=== PATIENT | male | born 1985 | race Asian ===

== ENCOUNTER 2020-05-27 21:05 | Emergency (ER) | payer BC ==
[~2020-05-27] VITALS: Ht 172.7 cm; Wt 79.5 kg
[2020-05-27] MEDS ORDERED: dexamethasone sod phosphate 10mg/ml inj IV STA (21:19)
[2020-05-27] MEDS ORDERED: clindamycin phosphate inj 600 MG in normal saline 50ml IV soln 50 ML IV ONE (21:20)
[2020-05-27] MEDS ORDERED: normal saline 1000ML IV soln IVB ONE (21:20)
[2020-05-27] MEDS ORDERED: LIDOcaine 1% W/epiNEPHrine 1:200,000 10ml vial IJ ONE (21:20)
[2020-05-27] MEDS ORDERED: fentaNYL/PF 50MCG/1 ML 2ML syringe IV ONE (21:25)
[2020-05-27] MEDS ORDERED: clindamycin 600mg/D5W 50ml 50 ML IV ONE (21:25)
[2020-05-27] MEDS ORDERED: CLIN-97 PO (21:28)
[2020-05-27] MEDS ORDERED: HYDR-3965 PO (21:28)
[2020-05-27] MEDS ORDERED: LIDOcaine 1% w/epiNEPHrine 1:200,000 30ml vial IJ ONE (21:30)
[2020-05-27 22:18] LABS: BASOPHILS # (AUTO) 0.1 X10'3 (0-0.2); BASOPHILS % (AUTO) 0.3 % (0-1); EOSINOPHILS % (AUTO) 0 % (0-6); HEMATOCRIT 46.5 % (42.0-52.0); HEMOGLOBIN 15.9 g/dl (14.0-17.9); LYMPHOCYTES % (AUTO) 10.1 % (21-51); MEAN CORPUSCULAR HEMOGLOBIN 29.8 PG (27.0-31.0); MEAN CORPUSCULAR HGB CONC 34.1 g/dL (33.0-36.5); MEAN CORPUSCULAR VOLUME 87.3 FL (78-98); MEAN PLATELET VOLUME 8.8 FL (7.4-10.4); MONOCYTES # (AUTO) 2.1 X10'3 (0-0.9); MONOCYTES % (AUTO) 10.5 % (2-12); NEUTROPHILS # (AUTO) 16.1 X10'3 (1.8-7.7); NEUTROPHILS % (AUTO) 79.1 % (42-75); PLATELET COUNT 231 X10'3 (140-440); RED BLOOD COUNT 5.33 X10'6 (4.70-6.10); RED CELL DISTRIBUTION WIDTH 13.4 % (11.5-14.5); WHITE BLOOD COUNT 20.3 X10'3 (4.5-11.0)
[2020-05-27 22:21] LABS: ALANINE AMINOTRANSFERASE 32 U/L (12-78); ALBUMIN 3.8 G/DL (3.4-5.0); ALBUMIN/GLOBULIN RATIO 0.8 (1.1-1.5); ALKALINE PHOSPHATASE 62 IU/L (46-116); ANION GAP 11 (8-16); ASPARTATE AMINO TRANSFERASE 12 U/L (10-37); BILIRUBIN,TOTAL 0.8 MG/DL (0.1-1.0); BLOOD UREA NITROGEN 26 MG/DL (7-18); BUN/CREATININE RATIO 22.8 (5.4-32.0); CALCIUM 9.6 MG/DL (8.5-10.1); CHLORIDE 99 MMOL/L (99-107); CREATININE 1.14 MG/DL (0.60-1.10); GLUCOSE 134 MG/DL (70-104); POTASSIUM 4.1 MMOL/L (3.5-5.1); SODIUM 136 MMOL/L (135-145); TOTAL CARBON DIOXIDE 26.4 MMOL/L (24-32); TOTAL PROTEIN 8.6 G/DL (6.4-8.2); eGFR 74 ML/MIN
[2020-05-27 23:01] LABS: TOTAL CELLS COUNTED 100
[2020-05-27 23:02] LABS: LARGE PLATELETS FEW; PLATELET ESTIMATE NORMAL
[2020-05-27 23:09] VITALS: BP 127/62
== END 2020-05-27 23:21 | disposition home or self-care (01) ==
LOC: ER 21:06
DX: J36 Peritonsillar abscess (principal); Z88.6 Allergy status to analgesic agent; Z79.899 Other long term (current) drug therapy
CPT/HCPCS: 36415; 80053; 85007; 85025; 87070; 87081; 87880; 96365; 96375; 99284; J1100; J3010; J7030; J3490